=== PATIENT | female | born 1950 | race Caucasian/White ===

== ENCOUNTER 2019-02-09 18:17 | Emergency (ER) | payer MEDICARE ==
[~2019-02-09 18:17] MED LIST: EPINEPHrine 0.1 MG/ML SYG
== END 2019-02-09 20:20 | disposition expired ==
LOC: E/R 20:20
DX: I46.9 Cardiac arrest, cause unspecified (principal)
CPT/HCPCS: 31500; 76937; 92950; 99285-25